=== PATIENT | male | born 1935 | race Caucasian/White ===

== ENCOUNTER → 2019-01-23 | Outpatient (CLI) | payer OTHER | END | disposition home or self-care (01) | LOC: SHCH 11:18 → EDUNIT# 11:30 | PROVIDERS: ATTEND Internal Medicine Cardiovascular Disease | DX: I65.23 Occlusion and stenosis of bilateral carotid arteries (principal); I95.1 Orthostatic hypotension | CPT/HCPCS: 93880 ==